=== PATIENT | male | born 2000 | race African-American/Black ===

== ENCOUNTER 2020-06-05 18:55 | Emergency (ER) | payer OTHER ==
[2020-06-05 19:01] VITALS: BP 136/57; PULSE 83; TEMP 97.3; BMI 44.4
== END 2020-06-05 21:28 | disposition home or self-care (01) ==
LOC: JERFT 18:55
DX: R10.9 Unspecified abdominal pain (principal)
CPT/HCPCS: 74021-TC-FY; 99281-25

== ENCOUNTER 2020-06-16 11:01 | Emergency (ER) | payer OTHER ==
[2020-06-16 11:22] VITALS: BP 121/48; PULSE 71; TEMP 97.8; BMI 44.2
[2020-06-16 12:51] LABS: URINE APPEARANCE CLEAR; URINE BILIRUBIN NEGATIVE (NEGATIVE); URINE COLOR YELLOW; URINE GLUCOSE (UA) NEGATIVE (NEGATIVE); URINE KETONE NEGATIVE (NEGATIVE); URINE LEUK ESTERASE NEGATIVE (NEGATIVE); URINE NITRITE NEGATIVE (NEGATIVE); URINE PROTEIN NEGATIVE (NEGATIVE); URINE UROBILINOGEN 0.2 mg/dL (0.2-1.0)
== END 2020-06-16 12:56 | disposition home or self-care (01) ==
LOC: JER 11:01
DX: R10.9 Unspecified abdominal pain (principal)
CPT/HCPCS: 81003; 87086; 99284-25